=== PATIENT | female | born 1985 | race Caucasian/White ===

== ENCOUNTER 2021-04-07 10:17 | Inpatient (IN) | payer MEDICAID ==
[~2021-04-07] VITALS: Ht 162.6 cm; Wt 97.5 kg
[2021-04-07] MEDS ORDERED: CARBOPROST TROMETHAMINE 250 MCG/ML AMPUL IM PRN (12:15)
[2021-04-07] MEDS ORDERED: AMPICILLIN 2GM in NS 100ML 100 ML IV SCH (12:15)
[2021-04-07] MEDS ORDERED: METHYLERGONOVINE MALEATE 0.2 MG/ML IM PRN (12:15)
[2021-04-07] MEDS ORDERED: DEXT 5%/LR + PITOCIN 20UNITS/L 1,000 ML IV SCH ×2 (13:45→20:00)
[2021-04-07] MEDS ORDERED: PENICILLIN G POTASSIUM 5 MMU in DEXT 5% WATER 100 ML IV NR (14:00)
[2021-04-07 14:01] LABS: BASOPHILS % 0.3 % (0.0-2.0); EOSINOPHILS % 1.2 % (0.0-5.0); HEMATOCRIT. 37.5 % (36.0-48.0); HEMOGLOBIN. 12.7 g/dL (12.0-16.0); LYMPHOCYTES % 15.3 % (20.0-50.0); MEAN CORPUSCULAR HEMOGLOBIN 31.4 pg (28.0-32.0); MEAN CORPUSCULAR VOLUME 92.9 fL (81.0-99.0); MONOCYTES % 6.1 % (2.0-8.0); NEUTROPHILS % 77.1 % (40.0-76.0); PLATELET 224 x1000/uL (130-400); RED BLOOD CELL COUNT 4.04 mill/uL (4.2-5.4)
[2021-04-07 14:15] LABS: INR 0.9; PARTIAL THROMBOPLASTIN TIME 25.9 sec (23.4-31.0)
[2021-04-07] MEDS ORDERED: LACTATED RINGERS 500ML 500 ML IV SCH (14:30)
[2021-04-07] MEDS: LACTATED RINGERS 1,000 ML IV SCH ×2 (14:32→14:37)
[2021-04-07 14:33] LABS: *AMPHETAMINES SCREEN URINE NEGATIVE (NEGATIVE)
[2021-04-07 14:34] LABS: *BENZODIAZEPINES SCREEN URINE NEGATIVE (NEGATIVE); *COCAINE SCREEN URINE NEGATIVE (NEGATIVE)
[2021-04-07 14:37] LABS: OPIATES URINE SCREEN NEGATIVE (NEGATIVE); PHENCYCLIDINE URINE SCREEN NEGATIVE (NEGATIVE)
[2021-04-07 14:48] LABS: CANNABINOID URINE SCREEN NEGATIVE (NEGATIVE)
[2021-04-07 16:49] LABS: HEPATITIS B SURFACE ANTIGEN NEGATIVE
[2021-04-07] MEDS ORDERED: PENICILLIN G POTASSIUM 2.5 MMU in DEXTROSE 5% WATER 50 ML IV SCH (18:00)
[2021-04-07] MEDS ORDERED: PHENYLEPHRINE HCL 10 MG/ML 1ML (IV VIAL) IV ONE (18:34)
[2021-04-07] MEDS ORDERED: DIPHENHYDRAMINE 50MG/ML VIAL ONE (18:34)
[2021-04-07] MEDS ORDERED: CEFAZOLIN SODIUM 1000MG/VIAL ONE ×2 (18:34→19:52)
[2021-04-07] MEDS ORDERED: FENTANYL CITRATE/PF 50MCG/ML 2ML VIAL ONE (18:34)
[2021-04-07] MEDS ORDERED: EPHEDRINE SULFATE 50MG/ML VIAL ONE (18:34)
[2021-04-07] MEDS ORDERED: OXYTOCIN 10 UNITS/ML 1ML ONE (18:34)
[2021-04-07] MEDS ORDERED: MORPHINE SULFATE/PF 1MG/ML 10ML AMP ONE (18:34)
[2021-04-07] MEDS ORDERED: ONDANSETRON HCL 4MG/2ML INJ ONE ×2 (18:34→20:05)
[2021-04-07] MEDS ORDERED: AMPICILLIN 1,000 MG in SODIUM CHLORIDE 0.9% 50 ML IV SCH (19:00)
[2021-04-07] MEDS ORDERED: CITRIC ACID/SODIUM CITRATE SOLN 30ML UDC PO NR (19:19)
[2021-04-07] MEDS ORDERED: ONDANSETRON HCL 4MG/2ML INJ IV PRN (19:45)
[2021-04-07] MEDS ORDERED: HEMORRHOIDAL SUPP PR PRN (19:45)
[2021-04-07] MEDS ORDERED: DIPHENHYDRAMINE 25MG CAPSULE PO PRN (19:45)
[2021-04-07] MEDS ORDERED: HYDROCODONE/ACETAMINOPHEN 5/325MG TABLET PO PRN (19:45)
[2021-04-07] MEDS ORDERED: BISACODYL 10MG SUPP PR PRN (19:45)
[2021-04-07] MEDS ORDERED: ACETAMINOPHEN WITH CODEINE 300/30MG TABLET PO PRN (19:45)
[2021-04-07] MEDS ORDERED: KETOROLAC 60MG/2ML VIAL IM ONE (20:06)
[2021-04-07] MEDS ORDERED: BUTORPHANOL TARTRATE 2 MG/ML VIAL IV PRN (20:45)
[2021-04-07] MEDS ORDERED: NALOXONE HCL 0.4 MG/ML 1ML VIAL IV PRN (20:45)
[2021-04-07] MEDS ORDERED: DIPHENHYDRAMINE 50MG/ML VIAL IV PRN (20:45)
[2021-04-07] MEDS: SIMETHICONE 80MG TABLET CHEW PO SCH (21:00)
[2021-04-07] MEDS: MAGNESIUM/ALUMINUM HYDROXIDE/SIMETHICONE 30ML UDC PO SCH (21:00)
[2021-04-07] MEDS: DOCUSATE SODIUM 100MG CAPSULE PO SCH (21:00)
[2021-04-07 22:30] VITALS: BP 123/78
[2021-04-07 23:00] VITALS: BP 123/76
[2021-04-08 00:01] VITALS: BP 108/61
[2021-04-08] MEDS: KETOROLAC 30MG/ML VIAL IV SCH ×2 (01:41→08:52)
[2021-04-08 03:30] VITALS: BP 94/57
[2021-04-08] MEDS: LACTATED RINGERS 1,000 ML IV SCH (05:18)
[2021-04-08 07:33] LABS: BASOPHILS % 0.2 % (0.0-2.0); EOSINOPHILS % 0.8 % (0.0-5.0); HEMATOCRIT. 31.6 % (36.0-48.0); LYMPHOCYTES % 10.8 % (20.0-50.0); MEAN CORPUSCULAR HEMOGLOBIN 32.4 pg (28.0-32.0); MEAN CORPUSCULAR VOLUME 92.8 fL (81.0-99.0); MEAN PLATELET VOLUME 9.1 fl (7.4-10.4); MONOCYTES % 6.3 % (2.0-8.0); NEUTROPHILS % 81.9 % (40.0-76.0); PLATELET 183 x1000/uL (130-400); RED CELL DISTRIBUTION WIDTH 14.9 % (11.6-14.6)
[2021-04-08 07:40] VITALS: BP 100/61
[2021-04-08] MEDS: SIMETHICONE 80MG TABLET CHEW PO SCH ×3 (08:51→17:43)
[2021-04-08] MEDS: FERROUS SULFATE 325MG TABLET PO SCH ×3 (08:51→17:43)
[2021-04-08] MEDS: MAGNESIUM/ALUMINUM HYDROXIDE/SIMETHICONE 30ML UDC PO SCH ×3 (08:51→17:43)
[2021-04-08] MEDS: PRENATAL VIT/FE FUMARATE/FA TABLET PO SCH (08:51)
[2021-04-08 13:00] VITALS: BP 102/50
[2021-04-08 16:12] VITALS: BP 114/65
[2021-04-08] MEDS ORDERED: NALOXONE HCL 0.4MG/ML VIAL IV PRN (17:15)
[2021-04-08] MEDS ORDERED: TETANUS, DIPHTHERIA, PERTUSSIS VAC/PF 0.5ML (>10YR OLD) IM ONE (18:00)
[2021-04-08] MEDS ORDERED: INFLUENZA VACCINE 05/PF 0.5 ML SYRINGE IM ONE (18:00)
[2021-04-08 19:16] LABS: *BARBITURATES SCREEN URINE NEGATIVE (NEGATIVE); METHADONE URINE SCREEN NEGATIVE (NEGATIVE)
[2021-04-08 20:00] VITALS: BP 108/70
[2021-04-09 04:00] VITALS: BP 101/65
[2021-04-09] MEDS: IBUPROFEN 400MG TABLET PO PRN ×2 (04:02→20:19)
[2021-04-09 07:30] VITALS: BP 107/59
[2021-04-09] MEDS: MAGNESIUM/ALUMINUM HYDROXIDE/SIMETHICONE 30ML UDC PO SCH ×3 (09:20→18:15)
[2021-04-09] MEDS: SIMETHICONE 80MG TABLET CHEW PO SCH ×4 (09:21→20:19)
[2021-04-09] MEDS: FERROUS SULFATE 325MG TABLET PO SCH ×3 (09:21→18:16)
[2021-04-09] MEDS: PRENATAL VIT/FE FUMARATE/FA TABLET PO SCH (09:21)
[2021-04-09 16:05] VITALS: BP 106/61
[2021-04-09 20:00] VITALS: BP 112/76
[2021-04-09] MEDS: DOCUSATE SODIUM 100MG CAPSULE PO SCH (20:18)
[2021-04-10 04:30] VITALS: BP 107/62
[2021-04-10 08:04] VITALS: BP 119/71
[2021-04-10] MEDS: MAGNESIUM/ALUMINUM HYDROXIDE/SIMETHICONE 30ML UDC PO SCH (08:57)
[2021-04-10] MEDS: FERROUS SULFATE 325MG TABLET PO SCH (08:58)
[2021-04-10] MEDS: IBUPROFEN 400MG TABLET PO PRN (08:58)
[2021-04-10] MEDS: SIMETHICONE 80MG TABLET CHEW PO SCH (08:58)
[2021-04-10] MEDS: PRENATAL VIT/FE FUMARATE/FA TABLET PO SCH (08:58)
== END 2021-04-10 13:15 | disposition home or self-care (01) | DRG 540 ==
LOC: 8 EST LDRP 10:17 → OBSVTOIN 10:17 → 8EST 23:02
PROVIDERS: ADMIT Obstetrics & Gynecology; ATTEND Obstetrics & Gynecology
PROC: 10D00Z1 Extraction of Products of Conception, Low, Open Approach (ICD-10-PCS; principal; 2021-04-07)
DX: O76 Abnormality in fetal heart rate and rhythm complicating labor and delivery (principal); O41.03X0 Oligohydramnios, third trimester, not applicable or unspecified; Z20.822 Contact with and (suspected) exposure to COVID-19; Z3A.40 40 weeks gestation of pregnancy; Z37.0 Single live birth
CPT/HCPCS: 36415; 76805; 76818; 80305; 82962; 85025; 86592; 86762; 86850; 86900; 87340; 87426; 88307; 90686; 90715; 99281; J0290; J0690; J1200; J1885; J2274; J2370; J2405; J2540; J2590; J3010; J3490; J7060; J7120; A4315